=== PATIENT | female | born 1960 | race African-American/Black ===

== ENCOUNTER 2019-01-21 14:22 | Inpatient (IN) ==
[2019-01-21 18:00] LABS: ABG ALLEN TEST POS; ABG HCO3 29.6 mmol/L (22-26)
--- NOTE | 2019-01-21 19:22 | RAD ---
HISTORY: Congestive heart failure Study: Single view of the chest. Comparison: None. Findings: Cardiomegaly and pulmonary edema. No focal consolidations, pleural effusions or pneumothorax. Osseous structures demonstrate no acute abnormality. IMPRESSION: 1. Cardiomegaly and pulmonary edema. Reported By:
[2019-01-21 19:55] LABS: TROPONIN I 0.02 ng/mL (0-1.5)
[2019-01-21] MEDS: LASIX IVP SCH (20:21)
[2019-01-21 20:27] LABS: ALANINE AMINOTRANSFERASE 30 Units/L (12-78); ALBUMIN 3.4 g/dL (3.4-5.0); ALKALINE PHOSPHATASE 208 Units/L (46-116); ASPARTATE AMINO TRANSFERASE 24 Units/L (15-37); BLOOD UREA NITROGEN 72 mg/dL (7-18); CALCIUM 8.1 mg/dL (8.5-10.1); CARBON DIOXIDE 26.7 mmol/L (21-32); CHLORIDE 98 mmol/L (98-107); COR NA(FOR HYPERGLY) 134 mmol/L (136-145); CREATININE 4.67 mg/dL (0.55-1.02); SODIUM 133 mmol/L (136-145); TOTAL PROTEIN 7.3 g/dL (6.4-8.2); eGFR NON BLACK RACES 10 (>60)
[2019-01-21 20:42] LABS: CKMB % 1.3 % (<4)
[2019-01-21 20:58] LABS: BASOPHILS # (AUTO) 0.2 X10^3/uL (0.0-0.1); BASOPHILS % (AUTO) 3.8 % (0.2-1.0); EOSINOPHILS # (AUTO) 0.2 x10^3/uL (0.0-0.2); EOSINOPHILS % (AUTO) 3.3 % (0.9-2.9); HEMATOCRIT 29.7 % (36.0-47.0); HEMOGLOBIN 8.9 g/dL (12.0-16.0); LYMPHOCYTES # (AUTO) 0.8 X10^3/uL (1.3-2.9); LYMPHOCYTES % (AUTO) 13.1 % (21.0-51.0); MEAN CORPUSCULAR HEMOGLOBIN 21.7 pg (27.0-34.0); MEAN CORPUSCULAR HGB CONC 30.1 g/dL (33.0-35.0); MEAN CORPUSCULAR VOLUME 72.3 fL (80.0-100.0); MEAN PLATELET VOLUME 8.7 fL (7.4-11.0); MONOCYTES # (AUTO) 0.8 x10^3/uL (0.3-0.8); MONOCYTES % (AUTO) 12.8 % (0.0-13.0); PLATELET COUNT 191 X10^3/uL (150.0-450.0); RED BLOOD COUNT 4.11 X10^6/uL (3.5-5.4); RED CELL DISTRIBUTION WIDTH 22.2 % (11.6-16.5)
[2019-01-21 21:00] LABS: PLATELET MORPHOLOGY COMMENT NORMAL (NORMAL)
[2019-01-21 21:05] LABS: ANISOCYTOSIS 2+; HYPOCHROMASIA 2+; MICROCYTOSIS SLIGHT
[2019-01-22] MEDS: XOPENEX 1.25 MG/3 ML NEBULE NEB SCH ×4 (00:33→17:30)
[2019-01-22 01:26] LABS: CKMB % 1.4 % (<4); CREATINE KINASE MB 0.8 ng/mL (0-4.0); TROPONIN I 0.03 ng/mL (0-1.5)
[2019-01-22] MEDS: LASIX IVP SCH ×2 (04:05→20:36)
[2019-01-22 05:07] LABS: ABG BASE EXCESS 2.6 mmol/L (-2.0-2.0)
[2019-01-22 05:09] LABS: ABG HCO3 31.2 mmol/L (22-26)
--- NOTE | 2019-01-22 06:14 | RAD ---
History: CHF Exam: Portable chest Comparison: 01/21/2019 Technique: Portable AP chest Findings: The heart is moderately enlarged but unchanged. The pulmonary vessels are engorged ill-defined centrally more prominent . There are some hazy bibasilar opacities with questionable mild blunting of the costophrenic sulci which is more apparent. IMPRESSION: Stable cardiomegaly with increasing central pulmonary congestion. Hazy bibasilar opacities and questionable small bibasilar pleural effusions which is more apparent. Reported By:
[2019-01-22 06:37] LABS: BASOPHILS # (AUTO) 0.1 X10^3/uL (0.0-0.1); BASOPHILS % (AUTO) 1.3 % (0.2-1.0); EOSINOPHILS # (AUTO) 0.2 x10^3/uL (0.0-0.2); EOSINOPHILS % (AUTO) 3.5 % (0.9-2.9); HEMATOCRIT 27.3 % (36.0-47.0); HEMOGLOBIN 8.3 g/dL (12.0-16.0); LYMPHOCYTES # (AUTO) 1.1 X10^3/uL (1.3-2.9); LYMPHOCYTES % (AUTO) 17.7 % (21.0-51.0); MEAN CORPUSCULAR HEMOGLOBIN 21.9 pg (27.0-34.0); MEAN CORPUSCULAR HGB CONC 30.5 g/dL (33.0-35.0); MEAN CORPUSCULAR VOLUME 71.7 fL (80.0-100.0); MEAN PLATELET VOLUME 8.5 fL (7.4-11.0); MONOCYTES % (AUTO) 17.3 % (0.0-13.0); NEUTROPHILS # (AUTO) 3.6 x10^3/uL (2.2-4.8); NEUTROPHILS % (AUTO) 60.2 % (42.0-75.0); PLATELET COUNT 172 X10^3/uL (150.0-450.0); RED BLOOD COUNT 3.81 X10^6/uL (3.5-5.4); RED CELL DISTRIBUTION WIDTH 22.4 % (11.6-16.5)
[2019-01-22 06:46] LABS: HYPOCHROMASIA 1+; PLATELET MORPHOLOGY COMMENT NORMAL (NORMAL)
[2019-01-22 06:47] LABS: ANISOCYTOSIS 1+; TARGET CELLS SLIGHT
[2019-01-22 06:58] LABS: ALANINE AMINOTRANSFERASE 25 Units/L (12-78); ALKALINE PHOSPHATASE 178 Units/L (46-116); ASPARTATE AMINO TRANSFERASE 35 Units/L (15-37); BLOOD UREA NITROGEN 74 mg/dL (7-18); CARBON DIOXIDE 25.2 mmol/L (21-32); CHLORIDE 98 mmol/L (98-107); COR CA(FOR HYPOALB) 8.8 mg/dL (8.5-10.1); CREATININE 4.54 mg/dL (0.55-1.02); SODIUM 135 mmol/L (136-145); TOTAL PROTEIN 6.5 g/dL (6.4-8.2); eGFR NON BLACK RACES 11 (>60)
[2019-01-22 06:59] LABS: CKMB % 0.9 % (<4); CREATINE KINASE 66 Units/L (26-192); CREATINE KINASE MB 0.6 ng/mL (0-4.0); TROPONIN I 0.01 ng/mL (0-1.5)
[2019-01-22] MEDS ORDERED: PATIENT'S HOME MEDICATION (Albuterol Sulfate [Proventil Hfa] 2 PUFF) IN PRN (08:06)
[2019-01-22] MEDS ORDERED: NEURONTIN CAP 400 MG PO SCH (09:00)
[2019-01-22] MEDS: ALDACTONE TAB 25 MG PO SCH (10:48)
[2019-01-22] MEDS: ASPIRIN EC 81 MG PO SCH (10:48)
[2019-01-22] MEDS: KEPPRA TAB 500 MG PO SCH ×2 (10:49→20:36)
[2019-01-22] MEDS: ZAROXOYLN PO SCH (10:50)
[2019-01-22] MEDS: PriLOSEC PO SCH (10:50)
[2019-01-22] MEDS: SNACK - Diabetic Appropriate PO SCH (20:30)
[2019-01-22] MEDS: LIPITOR TAB 40 MG PO SCH (20:36)
[2019-01-22] MEDS ORDERED: LANTUS SC SCH (21:00)
[2019-01-23] MEDS: XOPENEX 1.25 MG/3 ML NEBULE NEB SCH ×4 (00:03→17:26)
[2019-01-23 05:11] LABS: ABG BASE EXCESS 4.2 mmol/L (-2.0-2.0)
[2019-01-23 05:12] LABS: ABG HCO3 32.7 mmol/L (22-26)
[2019-01-23 06:04] LABS: BASOPHILS # (AUTO) 0.1 X10^3/uL (0.0-0.1); EOSINOPHILS # (AUTO) 0.2 x10^3/uL (0.0-0.2); EOSINOPHILS % (AUTO) 3.7 % (0.9-2.9); HEMATOCRIT 27.9 % (36.0-47.0); HEMOGLOBIN 8.3 g/dL (12.0-16.0); LYMPHOCYTES # (AUTO) 0.8 X10^3/uL (1.3-2.9); LYMPHOCYTES % (AUTO) 16.4 % (21.0-51.0); MEAN CORPUSCULAR HEMOGLOBIN 21.8 pg (27.0-34.0); MEAN CORPUSCULAR HGB CONC 29.9 g/dL (33.0-35.0); MEAN PLATELET VOLUME 9.4 fL (7.4-11.0); MONOCYTES # (AUTO) 0.8 x10^3/uL (0.3-0.8); MONOCYTES % (AUTO) 15.2 % (0.0-13.0); NEUTROPHILS # (AUTO) 3.2 x10^3/uL (2.2-4.8); NEUTROPHILS % (AUTO) 63.7 % (42.0-75.0); PLATELET COUNT 183 X10^3/uL (150.0-450.0); RED BLOOD COUNT 3.82 X10^6/uL (3.5-5.4)
--- NOTE | 2019-01-23 06:18 | RAD ---
HISTORY: Shortness of breath Study: Single view chest Comparison: 01/22/2019 Findings: Single view demonstrates low lung volumes. No infiltrate, effusion or pneumothorax identified. There is cardiomegaly with chronic central vascular congestion without alveolar edema. The soft tissues are unremarkable. IMPRESSION: 1. Stable cardiomegaly and vascular congestion. Reported By:
[2019-01-23 06:33] LABS: ALANINE AMINOTRANSFERASE 31 Units/L (12-78); ALBUMIN 2.9 g/dL (3.4-5.0); ALKALINE PHOSPHATASE 165 Units/L (46-116); ASPARTATE AMINO TRANSFERASE 27 Units/L (15-37); BLOOD UREA NITROGEN 71 mg/dL (7-18); CALCIUM 8.2 mg/dL (8.5-10.1); CHLORIDE 100 mmol/L (98-107); COR CA(FOR HYPOALB) 9.1 mg/dL (8.5-10.1); CREATININE 3.81 mg/dL (0.55-1.02); SODIUM 137 mmol/L (136-145); TOTAL PROTEIN 6.4 g/dL (6.4-8.2); eGFR NON BLACK RACES 13 (>60)
[2019-01-23 06:58] LABS: ANISOCYTOSIS 1+; HYPOCHROMASIA 2+; PLATELET MORPHOLOGY COMMENT NORMAL (NORMAL)
[2019-01-23] MEDS: KEPPRA TAB 500 MG PO SCH ×2 (09:35→20:38)
[2019-01-23] MEDS: PriLOSEC PO SCH (09:35)
[2019-01-23] MEDS: LASIX IVP SCH ×3 (09:35→22:00)
[2019-01-23] MEDS: ASPIRIN EC 81 MG PO SCH (09:35)
[2019-01-23] MEDS: ALDACTONE TAB 25 MG PO SCH (09:35)
[2019-01-23] MEDS: ZAROXOYLN PO SCH (09:38)
[2019-01-23] MEDS ORDERED: PERCOCET TAB 5/325 MG ONE (11:18)
[2019-01-23] MEDS ORDERED: NS 1000 ML 1,000 ML ONE (13:42)
[2019-01-23] MEDS ORDERED: LASIX IVP ONE (13:43)
[2019-01-23] MEDS: NS 1000 ML 1,000 ML IV SCH (14:06)
[2019-01-23] MEDS: LIPITOR TAB 40 MG PO SCH (20:38)
[2019-01-23] MEDS: SNACK - Diabetic Appropriate PO SCH (20:38)
[2019-01-24] MEDS: XOPENEX 1.25 MG/3 ML NEBULE NEB SCH ×4 (00:51→17:20)
[2019-01-24] MEDS: LASIX IVP SCH ×3 (05:51→21:57)
[2019-01-24 05:53] LABS: BASOPHILS % (AUTO) 0.6 % (0.2-1.0); EOSINOPHILS # (AUTO) 0.2 x10^3/uL (0.0-0.2); EOSINOPHILS % (AUTO) 3.1 % (0.9-2.9); HEMATOCRIT 29.1 % (36.0-47.0); HEMOGLOBIN 8.8 g/dL (12.0-16.0); LYMPHOCYTES # (AUTO) 0.8 X10^3/uL (1.3-2.9); LYMPHOCYTES % (AUTO) 16.3 % (21.0-51.0); MEAN CORPUSCULAR HEMOGLOBIN 21.8 pg (27.0-34.0); MEAN CORPUSCULAR HGB CONC 30.5 g/dL (33.0-35.0); MEAN CORPUSCULAR VOLUME 71.7 fL (80.0-100.0); MONOCYTES # (AUTO) 0.8 x10^3/uL (0.3-0.8); MONOCYTES % (AUTO) 16.4 % (0.0-13.0); NEUTROPHILS # (AUTO) 3.1 x10^3/uL (2.2-4.8); NEUTROPHILS % (AUTO) 63.6 % (42.0-75.0); PLATELET COUNT 201 X10^3/uL (150.0-450.0); RED BLOOD COUNT 4.05 X10^6/uL (3.5-5.4); RED CELL DISTRIBUTION WIDTH 21.6 % (11.6-16.5); WHITE BLOOD COUNT 4.9 X10^3/uL (3.6-10.0)
[2019-01-24 06:09] VITALS: BMI 70.7
[2019-01-24 06:14] LABS: ALBUMIN 3.2 g/dL (3.4-5.0); CALCIUM 8.3 mg/dL (8.5-10.1); CARBON DIOXIDE 33.2 mmol/L (21-32); COR CA(FOR HYPOALB) 8.9 mg/dL (8.5-10.1); CREATININE 2.9 mg/dL (0.55-1.02); TOTAL PROTEIN 7.1 g/dL (6.4-8.2)
--- NOTE | 2019-01-24 07:02 | RAD ---
HISTORY: Shortness of breath Study: Chest AP portable Comparison: 01/23/2019 Findings: The heart remains enlarged. No congestive heart failure is noted. No acute alveolar infiltrates or pleural effusions are identified. The bony thorax is unremarkable. IMPRESSION: Continued marked cardiomegaly but without definite congestive heart failure on today's examination No infiltrates Reported By:
[2019-01-24 07:13] LABS: ANISOCYTOSIS 2+; HYPOCHROMASIA 2+; PLATELET MORPHOLOGY COMMENT NORMAL (NORMAL)
[2019-01-24] MEDS ORDERED: PHARMACY CONSULT - DOSE _____ XX SCH (09:00)
[2019-01-24] MEDS: ASPIRIN EC 81 MG PO SCH (09:18)
[2019-01-24] MEDS: ZAROXOYLN PO SCH (09:19)
[2019-01-24] MEDS: PriLOSEC PO SCH (09:19)
[2019-01-24] MEDS: KEPPRA TAB 500 MG PO SCH ×2 (09:19→21:14)
[2019-01-24] MEDS: ALDACTONE TAB 25 MG PO SCH (09:19)
[2019-01-24 13:07] LABS: ABG BASE EXCESS 11.2 mmol/L (-2.0-2.0)
[2019-01-24 13:09] LABS: ABG ALLEN TEST POS; ABG HCO3 38.4 mmol/L (22-26)
[2019-01-24] MEDS: LOVENOX INJ 30 MG SYR SC SCH (14:20)
[2019-01-24 19:32] LABS: BILIRUBIN,URINE NEGATIVE (NEGATIVE); BLOOD/HEMOGLOBIN,URINE 4+ (NEGATIVE); GLUCOSE, URINE NEGATIVE (NEGATIVE); KETONES,URINE NEGATIVE (NEGATIVE); LEUKOCYTE ESTERASE ,URINE NEGATIVE (NEGATIVE); NITRITES,URINE NEGATIVE (NEGATIVE); PROTEIN,URINE 1+ (NEGATIVE); UROBILINOGEN,URINE NORMAL (NORMAL)
[2019-01-24 19:33] LABS: APPEARANCE,URINE CLEAR (CLEAR); COLOR,URINE STRAW (YELLOW)
[2019-01-24 19:39] LABS: BACTERIA,URINE NEGATIVE /HPF (NEGATIVE); SQUAMOUS EPITHELIAL CELL,UR NEGATIVE /HPF (NEGATIVE)
[2019-01-24] MEDS: SNACK - Diabetic Appropriate PO SCH (20:30)
[2019-01-24] MEDS: HumuLIN R SUBCUT PRN (20:40)
[2019-01-24] MEDS: LIPITOR TAB 40 MG PO SCH (21:15)
[2019-01-24] MEDS: NEURONTIN CAP 100 MG PO SCH (21:57)
--- NOTE | 2019-01-24 23:04 | PCM.PROG ---
Progress Note - Progress Note for Day of Date of Exam: 01/22/19 - Subjective Subjective: WAS ADMITTED YESTERDAY FOR ACUTE CONGESTIVE HEART FAILURE. TODAY, SHE IS LYING IN BED WITH EYES CLOSED ON MORNING ROUNDS. SHE OPENS EYES TO VERBAL STIMULI, BUT DOES NOT VERBALLY RESPOND. SHE HAS A HISTORY OF APHASIA DUE TO A PAST CVA. SHE APPEARS TO BE IN SOME RESPIRATORY DISTRESS. ON EXAMINATION, HEART IS REGULAR IN RATE AND RHYTHM. BILATERAL LUNGS ARE NOTED WITH SCATTERED WHEEZING. ABDOMEN IS ROUND, SOFT, AND NON-TENDER WITH NORMAL BOWEL SOUNDS NOTED IN ALL QUADRANTS. THERE IS 1+ PITTING EDEMA NOTED TO LOWER EXTREMITIES. HER VITALS THIS MORNING ARE 98.8-61-15-92%-121/59. LABS WERE OBTAINED. ABNORMAL LAB VALUES INCLUDE THE FOLLOWING: HGB 8.2, HCT 27.3, SODIUM 135, POTASSIUM 5.8, BUN 74, CREATININE 4.54, GLUCOSE 8.0, ALK PHOS 178, ALBUMIN 3.0. TODAYS ABG REVEALED: PH 7.270, PC02 68.0, P02 85.0, HC03 31.2, 02 SATURATION 95.0, BASE EXCESS 2.6. A CHEST XRAY WAS OBTAINED AND REVEALED: Stable cardiomegaly with increasing central pulmonary congestion. Hazy bibasilar opacities and questionable small bibasilar pleural effusions which is more apparent. SHE IS CURRENTLY RECEIVING LASIX 40MG IV BID AND HER HOME MEDICATIONS WERE RESUMED. WE WILL DISCONTINUE THE [place] DUE TO HER INCREASED POTASSIUM. OTHERWISE, WE WILL FOLLOW UP WITH AM LABS AND CHEST XRAY AND CONTINUE TO MONITOR. - Past Medical Family Social History Past Med/Fam/Surg Hx: No changes since H&P Allergies: Allergies No Known Drug Allergies Allergy (Verified 01/21/19 17:08) - Review of Systems ROS: No change since H&P - Vital Signs and I&O's Vital Signs: Temperature 99.1 F Pulse Rate [Right Radial] 54 Pulse Rate 77 Respiratory Rate 17 Blood Pressure [Left Arm] 107/63 Blood Pressure 154/68 O2 Sat by Pulse Oximetry 97 Intake and Output: Intake & Output 01/22/19 01/23/19 01/24/19 01/25/19 11:59 11:59 11:59 11:59 Intake Total 0 / 0 960 / 960 1913 / 1913 1283 / 1283 Output Total 1000 / 1000 3900 / 3900 5250 / 5250 5500 / 5500 Balance -1000 / -1000 -2940 / -2940 -3337 / -3337 -4217 / -4217 - Physical Exam Oriented: Unable to test Eyes: Normal Ear: Normal Nose: Normal Respiratory: Generalized, Wheezes Cardiovascular: Edema (LOWER EXTREMITY 1+ PITTING EDEMA ) : Normal Auscultation: Bowel Sounds: Normal Palpation: Normal Tenderness: Normal Skin: Normal Musculoskeletal: Normal Psychiatric: Normal Mood Description: Calm Affect: Normal Speech Pattern: Inappropriate, Delayed - Laboratory and Diagnostics Result Diagrams: 01/24/19 04:04 01/24/19 04:04 Labs: Laboratory WBC 4.9 X10^3/uL (3.6-10.0) 01/24/19 04:04 RBC 4.05 X10^6/uL (3.5-5.4) 01/24/19 04:04 Hgb 8.8 g/dL (12.0-16.0) L 01/24/19 04:04 Hct 29.1 % (36.0-47.0) L 01/24/19 04:04 MCV 71.7 fL (80.0-100.0) L 01/24/19 04:04 MCH 21.8 pg (27.0-34.0) L 01/24/19 04:04 MCHC 30.5 g/dL (33.0-35.0) L 01/24/19 04:04 RDW 21.6 % (11.6-16.5) H 01/24/19 04:04 Plt Count 201 X10^3/uL (150.0-450.0) 01/24/19 04:04 Plt Count Comment Adequate (ADEQUATE) 01/24/19 04:04 MPV 9.0 fL (7.4-11.0) 01/24/19 04:04 Neut % (Auto) 63.6 % (42.0-75.0) 01/24/19 04:04 Lymph % (Auto) 16.3 % (21.0-51.0) L 01/24/19 04:04 [place] % (Auto) 16.4 % (0.0-13.0) H 01/24/19 04:04 Eos % (Auto) 3.1 % (0.9-2.9) H 01/24/19 04:04 Baso % (Auto) 0.6 % (0.2-1.0) 01/24/19 04:04 Neut # (Auto) 3.1 x10^3/uL (2.2-4.8) 01/24/19 04:04 Lymph # (Auto) 0.8 X10^3/uL (1.3-2.9) L 01/24/19 04:04 [place] # (Auto) 0.8 x10^3/uL (0.3-0.8) 01/24/19 04:04 Eos # (Auto) 0.2 x10^3/uL (0.0-0.2) 01/24/19 04:04 Baso # (Auto) 0.0 X10^3/uL (0.0-0.1) 01/24/19 04:04 Absolute Nucleated RBC 0.1 /100WBC 01/24/19 04:04 Plt Morphology Comment Normal (NORMAL) 01/24/19 04:04 RBC Morphology Abnormal (NORMAL) A 01/24/19 04:04 Hypochromasia 2+ A 01/24/19 04:04 Anisocytosis 2+ A 01/24/19 04:04 Microcytosis Slight A 01/21/19 20:46 Target Cells Slight A 01/22/19 06:20 Sample Site Lr 01/24/19 12:57 ABG pH 7.400 (7.35-7.45) 01/24/19 12:57 ABG pCO2 62.0 mmHg (35.0-45.0) H* 01/24/19 12:57 ABG pO2 43.0 mmHg (80.0-100.0) L* 01/24/19 12:57 ABG HCO3 38.4 mmol/L (22-26) H* 01/24/19 12:57 ABG O2 Saturation 79.0 % (90-100) L* 01/24/19 12:57 ABG Base Excess 11.2 mmol/L (-2.0-2.0) H 01/24/19 12:57 Semaj Test Pos 01/24/19 12:57 A-a Gradient 108.0 mmHg 01/24/19 12:57 FiO2 32.0 01/24/19 12:57 Blood Gas Comments Celso well cb 01/24/19 12:57 Sodium 139 mmol/L (136-145) 01/24/19 04:04 Corrected Sodium 140 mmol/L (136-145) 01/24/19 04:04 Potassium 4.3 mmol/L (3.5-5.1) 01/24/19 04:04 Chloride 100 mmol/L (98-107) 01/24/19 04:04 Carbon Dioxide 33.2 mmol/L (21-32) H 01/24/19 04:04 BUN 66 mg/dL (7-18) H 01/24/19 04:04 Creatinine 2.90 mg/dL (0.55-1.02) H 01/24/19 04:04 Est GFR (MDRD) Af Amer 21 (>60) L 01/24/19 04:04 Est GFR (MDRD) Non-Af 18 (>60) L 01/24/19 04:04 Glucose 160 mg/dL (65-99) H 01/24/19 04:04 POC Glucose (mg/dL) 232 mg/dL (65-99) H 01/24/19 20:35 Calcium 8.3 mg/dL (8.5-10.1) L 01/24/19 04:04 Corrected Calcium 8.9 mg/dL (8.5-10.1) 01/24/19 04:04 Total Bilirubin 1.00 mg/dL (0.2-1.0) 01/24/19 04:04 AST 23 Units/L (15-37) 01/24/19 04:04 ALT 29 Units/L (12-78) 01/24/19 04:04 Alkaline Phosphatase 175 Units/L (46-116) H 01/24/19 04:04 Creatine Kinase 66 Units/L (26-192) 01/22/19 06:20 CK-MB (CK-2) 0.6 ng/mL (0-4.0) 01/22/19 06:20 CK/CKMB % Calc 0.9 % (<4) 01/22/19 06:20 Troponin I 0.01 ng/mL (0-1.5) 01/22/19 06:20 Total Protein 7.1 g/dL (6.4-8.2) 01/24/19 04:04 Albumin 3.2 g/dL (3.4-5.0) L 01/24/19 04:04 Globulin 3.9 g/dL (2.5-4.5) 01/24/19 04:04 Albumin/Globulin Ratio 0.8 Ratio (1.1-2.1) L 01/24/19 04:04 Specimen Type Catherized urine 01/24/19 19:19 Urine Color Straw (YELLOW) 01/24/19 19: Urine Appearance Clear (CLEAR) 01/24/19 19: Urine pH 7.0 (5.0 - 8.0) 01/24/19 19: Ur Specific [place] 1.005 (1.000-1.030) 01/24/19 19: Urine Protein 1+ (NEGATIVE) 01/24/19 19: Urine Glucose (UA) Negative (NEGATIVE) 01/24/19 19: Urine Ketones Negative (NEGATIVE) 01/24/19 19: Urine Occult Blood 4+ (NEGATIVE) 01/24/19 19: Urine Nitrite Negative (NEGATIVE) 01/24/19 19: Urine Bilirubin Negative (NEGATIVE) 01/24/19 19: Urine Urobilinogen Normal (NORMAL) 01/24/19 19:19 Ur Leukocyte Esterase Negative (NEGATIVE) 01/24/19 19: Urine RBC 10-20 /HPF (NONE SEEN) 01/24/19 19:19 Urine WBC None seen /HPF (NONE SEEN) 01/24/19 19:19 Ur Squamous Epith Cells Negative /HPF (NEGATIVE) 01/24/19 19: Urine Bacteria Negative /HPF (NEGATIVE) 01/24/19 19: Ur Culture Indicated? No/not indicated 01/24/19 19:19 - Plan (1) Acute exacerbation of CHF (congestive heart failure) Status: Acute Qualifiers: Heart failure type: unspecified Qualified Code(s): I50.9 - Heart failure, unspecified Plan: LASIX 40 MG IV BID, BIPAP, SUPPLEMENTAL OXYGEN, CONTINUE TO MONITOR
[2019-01-25] MEDS: XOPENEX 1.25 MG/3 ML NEBULE NEB SCH ×5 (01:00→18:36)
[2019-01-25 05:24] LABS: BASOPHILS % (AUTO) 0.7 % (0.2-1.0); EOSINOPHILS # (AUTO) 0.2 x10^3/uL (0.0-0.2); EOSINOPHILS % (AUTO) 3.7 % (0.9-2.9); HEMATOCRIT 26.1 % (36.0-47.0); LYMPHOCYTES # (AUTO) 0.9 X10^3/uL (1.3-2.9); LYMPHOCYTES % (AUTO) 19.7 % (21.0-51.0); MEAN CORPUSCULAR HGB CONC 30.8 g/dL (33.0-35.0); MEAN CORPUSCULAR VOLUME 71.3 fL (80.0-100.0); MEAN PLATELET VOLUME 8.8 fL (7.4-11.0); MONOCYTES # (AUTO) 0.7 x10^3/uL (0.3-0.8); MONOCYTES % (AUTO) 15.2 % (0.0-13.0); NEUTROPHILS # (AUTO) 2.8 x10^3/uL (2.2-4.8); NEUTROPHILS % (AUTO) 60.7 % (42.0-75.0); PLATELET COUNT 187 X10^3/uL (150.0-450.0); RED BLOOD COUNT 3.65 X10^6/uL (3.5-5.4); RED CELL DISTRIBUTION WIDTH 22.5 % (11.6-16.5); WHITE BLOOD COUNT 4.7 X10^3/uL (3.6-10.0)
[2019-01-25 05:39] LABS: CALCIUM 8.5 mg/dL (8.5-10.1); CARBON DIOXIDE 36.5 mmol/L (21-32); COR CA(FOR HYPOALB) 9.3 mg/dL (8.5-10.1); CREATININE 2.25 mg/dL (0.55-1.02); TOTAL PROTEIN 6.5 g/dL (6.4-8.2)
[2019-01-25] MEDS: HumuLIN R SUBCUT PRN ×4 (05:45→21:07)
[2019-01-25] MEDS: NEURONTIN CAP 100 MG PO SCH ×3 (06:12→22:00)
[2019-01-25] MEDS: LASIX IVP SCH ×3 (06:12→22:00)
[2019-01-25 06:43] LABS: HYPOCHROMASIA 1+; PLATELET MORPHOLOGY COMMENT NORMAL (NORMAL)
[2019-01-25 06:44] LABS: ANISOCYTOSIS 2+
[2019-01-25] MEDS: ZAROXOYLN PO SCH (09:35)
[2019-01-25] MEDS: KEPPRA TAB 500 MG PO SCH ×2 (09:35→20:50)
[2019-01-25] MEDS: LOVENOX INJ 30 MG SYR SC SCH (09:36)
[2019-01-25] MEDS: PriLOSEC PO SCH (09:36)
[2019-01-25] MEDS: ASPIRIN EC 81 MG PO SCH (09:36)
[2019-01-25] MEDS: ALDACTONE TAB 25 MG PO SCH (09:36)
--- NOTE | 2019-01-25 11:20 | PCM.PROG ---
Progress Note - Progress Note for Day of Date of Exam: 01/23/19 - Subjective Subjective: WAS ADMITTED YESTERDAY FOR ACUTE CONGESTIVE HEART FAILURE. TODAY, SHE IS LYING IN BED WITH EYES CLOSED ON MORNING ROUNDS. SHE OPENS EYES TO VERBAL STIMULI, BUT DOES NOT VERBALLY RESPOND. SHE HAS A HISTORY OF APHASIA DUE TO A PAST CVA. SHE CONTINUES TO BE IN SOME RESPIRATORY DISTRESS THIS MORNING. ON EXAMINATION, HEART IS REGULAR IN RATE AND RHYTHM. BILATERAL LUNGS ARE NOTED WITH SCATTERED WHEEZING. ABDOMEN IS ROUND, SOFT, AND NON-TENDER WITH NORMAL BOWEL SOUNDS NOTED IN ALL QUADRANTS. THERE IS 1+ PITTING EDEMA NOTED TO LOWER EXTREMITIES. HER VITALS THIS MORNING ARE 98.4-60-14-99%-111/53. LABS WERE OBTAINED. ABNORMAL LAB VALUES INCLUDE THE FOLLOWING: HGB 8.3, HCT 27.9, BUN 71, CREATININE 3.81, CALCIUM 8.2, ALK PHOSPHATASE 165, ALBUMIN 2.9. TODAYS ABG REVEALED: PH 7.290, PC02 68.0, P02 113, HC03 32.7, 02 SATURATION 98.0, BASE EXCESS 4.2. A CHEST XRAY WAS OBTAINED AND REVEALED: Stable cardiomegaly and vascular congestion. SHE IS CURRENTLY RECEIVING LASIX 40MG IV BID. WE WILL CONTINUE WITH CURRENT PLAN OF CARE TODAY. OTHERWISE, WE WILL FOLLOW UP WITH AM LABS AND CHEST XRAY AND CONTINUE TO MONITOR. - Past Medical Family Social History Past Med/Fam/Surg Hx: No changes since H&P Allergies: Allergies No Known Drug Allergies Allergy (Verified 01/21/19 17:08) - Review of Systems ROS: No change since H&P - Vital Signs and I&O's Vital Signs: Temperature 98.0 F Pulse Rate [Right Radial] 54 Pulse Rate 71 Respiratory Rate 20 Blood Pressure [Left Arm] 107/63 Blood Pressure 136/61 O2 Sat by Pulse Oximetry 100 Intake and Output: Intake & Output 01/22/19 01/23/19 01/24/19 01/25/19 11:59 11:59 11:59 11:59 Intake Total 0 / 0 960 / 960 1912 / 1912 2525 / 2525 Output Total 1000 / 1000 3900 / 3900 5250 / 5250 73932 / 35442 Balance -1000 / -1000 -2940 / -2940 -3337 / -3337 -7875 / -7875 - Physical Exam Oriented: Unable to test Eyes: Normal Ear: Normal Nose: Normal Respiratory: Generalized, Wheezes Cardiovascular: Edema (LOWER EXTREMITY 1+ PITTING EDEMA ) : Normal Auscultation: Bowel Sounds: Normal Tenderness: Normal Skin: Normal Musculoskeletal: Normal Psychiatric: Normal Mood Description: Calm Affect: Normal Speech Pattern: Clear, Appropriate - Laboratory and Diagnostics Result Diagrams: 01/25/19 04:42 01/25/19 04:42 Labs: Laboratory WBC 4.7 X10^3/uL (3.6-10.0) 01/25/19 04:42 RBC 3.65 X10^6/uL (3.5-5.4) 01/25/19 04:42 Hgb 8.0 g/dL (12.0-16.0) L 01/25/19 04:42 Hct 26.1 % (36.0-47.0) L 01/25/19 04:42 MCV 71.3 fL (80.0-100.0) L 01/25/19 04:42 MCH 22.0 pg (27.0-34.0) L 01/25/19 04:42 MCHC 30.8 g/dL (33.0-35.0) L 01/25/19 04:42 RDW 22.5 % (11.6-16.5) H 01/25/19 04:42 Plt Count 187 X10^3/uL (150.0-450.0) 01/25/19 04:42 Plt Count Comment Adequate (ADEQUATE) 01/25/19 04:42 MPV 8.8 fL (7.4-11.0) 01/25/19 04:42 Neut % (Auto) 60.7 % (42.0-75.0) 01/25/19 04:42 Lymph % (Auto) 19.7 % (21.0-51.0) L 01/25/19 04:42 [place] % (Auto) 15.2 % (0.0-13.0) H 01/25/19 04:42 Eos % (Auto) 3.7 % (0.9-2.9) H 01/25/19 04:42 Baso % (Auto) 0.7 % (0.2-1.0) 01/25/19 04:42 Neut # (Auto) 2.8 x10^3/uL (2.2-4.8) 01/25/19 04:42 Lymph # (Auto) 0.9 X10^3/uL (1.3-2.9) L 01/25/19 04:42 [place] # (Auto) 0.7 x10^3/uL (0.3-0.8) 01/25/19 04:42 Eos # (Auto) 0.2 x10^3/uL (0.0-0.2) 01/25/19 04:42 Baso # (Auto) 0.0 X10^3/uL (0.0-0.1) 01/25/19 04:42 Absolute Nucleated RBC 0.1 /100WBC 01/25/19 04:42 Plt Morphology Comment Normal (NORMAL) 01/25/19 04:42 RBC Morphology Abnormal (NORMAL) A 01/25/19 04:42 Hypochromasia 1+ A 01/25/19 04:42 Anisocytosis 2+ A 01/25/19 04:42 Microcytosis Slight A 01/21/19 20:46 Target Cells Slight A 01/22/19 06:20 Sample Site Lr 01/24/19 12:57 ABG pH 7.400 (7.35-7.45) 01/24/19 12:57 ABG pCO2 62.0 mmHg (35.0-45.0) H* 01/24/19 12:57 ABG pO2 43.0 mmHg (80.0-100.0) L* 01/24/19 12:57 ABG HCO3 38.4 mmol/L (22-26) H* 01/24/19 12:57 ABG O2 Saturation 79.0 % (90-100) L* 01/24/19 12:57 ABG Base Excess 11.2 mmol/L (-2.0-2.0) H 01/24/19 12:57 Semaj Test Pos 01/24/19 12:57 A-a Gradient 108.0 mmHg 01/24/19 12:57 FiO2 32.0 01/24/19 12:57 Blood Gas Comments Celso well cb 01/24/19 12:57 Sodium 140 mmol/L (136-145) 01/25/19 04:42 Corrected Sodium 142 mmol/L (136-145) 01/25/19 04:42 Potassium 4.0 mmol/L (3.5-5.1) 01/25/19 04:42 Chloride 101 mmol/L (98-107) 01/25/19 04:42 Carbon Dioxide 36.5 mmol/L (21-32) H 01/25/19 04:42 BUN 54 mg/dL (7-18) H 01/25/19 04:42 Creatinine 2.25 mg/dL (0.55-1.02) H 01/25/19 04:42 Est GFR (MDRD) Af Amer 29 (>60) L 01/25/19 04:42 Est GFR (MDRD) Non-Af 24 (>60) L 01/25/19 04:42 Glucose 165 mg/dL (65-99) H 01/25/19 04:42 POC Glucose (mg/dL) 174 mg/dL (65-99) H 01/25/19 11:16 Calcium 8.5 mg/dL (8.5-10.1) 01/25/19 04:42 Corrected Calcium 9.3 mg/dL (8.5-10.1) 01/25/19 04:42 Total Bilirubin 1.10 mg/dL (0.2-1.0) H 01/25/19 04:42 AST 17 Units/L (15-37) 01/25/19 04:42 ALT 21 Units/L (12-78) 01/25/19 04:42 Alkaline Phosphatase 157 Units/L (46-116) H 01/25/19 04:42 Creatine Kinase 66 Units/L (26-192) 01/22/19 06:20 CK-MB (CK-2) 0.6 ng/mL (0-4.0) 01/22/19 06:20 CK/CKMB % Calc 0.9 % (<4) 01/22/19 06:20 Troponin I 0.01 ng/mL (0-1.5) 01/22/19 06:20 Total Protein 6.5 g/dL (6.4-8.2) 01/25/19 04:42 Albumin 3.0 g/dL (3.4-5.0) L 01/25/19 04:42 Globulin 3.5 g/dL (2.5-4.5) 01/25/19 04:42 Albumin/Globulin Ratio 0.9 Ratio (1.1-2.1) L 01/25/19 04:42 Specimen Type Catherized urine 01/24/19 19: Urine Color Straw (YELLOW) 01/24/19 19: Urine Appearance Clear (CLEAR) 01/24/19 19: Urine pH 7.0 (5.0 - 8.0) 01/24/19 19: Ur Specific [place] 1.005 (1.000-1.030) 01/24/19 19: Urine Protein 1+ (NEGATIVE) 01/24/19 19: Urine Glucose (UA) Negative (NEGATIVE) 01/24/19 19: Urine Ketones Negative (NEGATIVE) 01/24/19: Urine Occult Blood 4+ (NEGATIVE) 01/24/19 19: Urine Nitrite Negative (NEGATIVE) 01/24/19 19: Urine Bilirubin Negative (NEGATIVE) 01/24/19 19: Urine Urobilinogen Normal (NORMAL) 01/24/19 19: Ur Leukocyte Esterase Negative (NEGATIVE) 01/24/19 19: Urine RBC 10-20 /HPF (NONE SEEN) 01/24/19 19: Urine WBC None seen /HPF (NONE SEEN) 01/24/19 19: Ur Squamous Epith Cells Negative /HPF (NEGATIVE) 01/24/19 19: Urine Bacteria Negative /HPF (NEGATIVE) 01/24/19 19: Ur Culture Indicated? No/not indicated 01/24/19 19: - Plan (1) Acute exacerbation of CHF (congestive heart failure) Status: Acute Qualifiers: Heart failure type: unspecified Qualified Code(s): I50.9 - Heart failure, unspecified Plan: LASIX 40 MG IV BID, BIPAP, SUPPLEMENTAL OXYGEN, CONTINUE TO MONITOR
[2019-01-25 12:40] LABS: ABG BASE EXCESS 14.2 mmol/L (-2.0-2.0)
[2019-01-25 12:41] LABS: ABG HCO3 41.5 mmol/L (22-26)
[2019-01-25 12:42] LABS: ABG ALLEN TEST POS
[2019-01-25] MEDS: NS 1000 ML 1,000 ML IV SCH (15:00)
[2019-01-25] MEDS: SNACK - Diabetic Appropriate PO SCH (20:35)
[2019-01-25] MEDS: LIPITOR TAB 40 MG PO SCH (21:07)
[2019-01-26] MEDS: XOPENEX 1.25 MG/3 ML NEBULE NEB SCH ×4 (00:54→16:33)
[2019-01-26 05:23] LABS: BASOPHILS # (AUTO) 0.1 X10^3/uL (0.0-0.1); EOSINOPHILS # (AUTO) 0.2 x10^3/uL (0.0-0.2); EOSINOPHILS % (AUTO) 2.9 % (0.9-2.9); HEMATOCRIT 28.3 % (36.0-47.0); HEMOGLOBIN 8.7 g/dL (12.0-16.0); LYMPHOCYTES # (AUTO) 0.8 X10^3/uL (1.3-2.9); MEAN CORPUSCULAR HEMOGLOBIN 21.8 pg (27.0-34.0); MEAN CORPUSCULAR HGB CONC 30.9 g/dL (33.0-35.0); MEAN CORPUSCULAR VOLUME 70.6 fL (80.0-100.0); MEAN PLATELET VOLUME 8.7 fL (7.4-11.0); MONOCYTES # (AUTO) 0.7 x10^3/uL (0.3-0.8); MONOCYTES % (AUTO) 12.3 % (0.0-13.0); NEUTROPHILS # (AUTO) 4.2 x10^3/uL (2.2-4.8); NEUTROPHILS % (AUTO) 70.8 % (42.0-75.0); PLATELET COUNT 209 X10^3/uL (150.0-450.0); RED BLOOD COUNT 4.01 X10^6/uL (3.5-5.4); RED CELL DISTRIBUTION WIDTH 22.3 % (11.6-16.5); WHITE BLOOD COUNT 5.9 X10^3/uL (3.6-10.0)
[2019-01-26 05:36] LABS: ALANINE AMINOTRANSFERASE 21 Units/L (12-78); ALBUMIN 3.4 g/dL (3.4-5.0); ALKALINE PHOSPHATASE 173 Units/L (46-116); ASPARTATE AMINO TRANSFERASE 16 Units/L (15-37); BLOOD UREA NITROGEN 46 mg/dL (7-18); CALCIUM 9.2 mg/dL (8.5-10.1); CHLORIDE 100 mmol/L (98-107); COR NA(FOR HYPERGLY) 141 mmol/L (136-145); CREATININE 1.89 mg/dL (0.55-1.02); SODIUM 140 mmol/L (136-145); TOTAL PROTEIN 7.1 g/dL (6.4-8.2); eGFR NON BLACK RACES 29 (>60)
[2019-01-26] MEDS: LASIX IVP SCH ×3 (06:05→21:02)
[2019-01-26] MEDS: NEURONTIN CAP 100 MG PO SCH ×3 (06:05→21:02)
[2019-01-26 06:32] LABS: ABG BASE EXCESS 16.2 mmol/L (-2.0-2.0)
[2019-01-26 06:34] LABS: ABG HCO3 42.4 mmol/L (22-26)
[2019-01-26 06:35] LABS: ABG ALLEN TEST POS
[2019-01-26 06:38] LABS: PLATELET MORPHOLOGY COMMENT NORMAL (NORMAL)
[2019-01-26 06:39] LABS: ANISOCYTOSIS 1+; HYPOCHROMASIA 2+
[2019-01-26] MEDS: LOVENOX INJ 30 MG SYR SC SCH (10:08)
[2019-01-26] MEDS: ZAROXOYLN PO SCH (10:09)
[2019-01-26] MEDS: ASPIRIN EC 81 MG PO SCH (10:10)
[2019-01-26] MEDS: ALDACTONE TAB 25 MG PO SCH (10:11)
[2019-01-26] MEDS: PriLOSEC PO SCH (10:11)
[2019-01-26] MEDS: KEPPRA TAB 500 MG PO SCH ×2 (10:11→21:02)
[2019-01-26] MEDS: SNACK - Diabetic Appropriate PO SCH (20:00)
[2019-01-26] MEDS: LIPITOR TAB 40 MG PO SCH (21:03)
[2019-01-26] MEDS: NS 1000 ML 1,000 ML IV SCH (21:03)
[2019-01-27] MEDS: XOPENEX 1.25 MG/3 ML NEBULE NEB SCH ×6 (00:35→17:03)
[2019-01-27 05:38] LABS: ABG BASE EXCESS 19.4 mmol/L (-2.0-2.0)
[2019-01-27 05:39] LABS: ABG HCO3 46.2 mmol/L (22-26)
[2019-01-27 05:40] LABS: ABG ALLEN TEST POS
[2019-01-27 05:40] LABS: BASOPHILS # (AUTO) 0.1 X10^3/uL (0.0-0.1); BASOPHILS % (AUTO) 0.9 % (0.2-1.0); EOSINOPHILS % (AUTO) 0.8 % (0.9-2.9); HEMATOCRIT 30.7 % (36.0-47.0); HEMOGLOBIN 9.5 g/dL (12.0-16.0); LYMPHOCYTES # (AUTO) 0.7 X10^3/uL (1.3-2.9); LYMPHOCYTES % (AUTO) 11.5 % (21.0-51.0); MEAN CORPUSCULAR HEMOGLOBIN 21.9 pg (27.0-34.0); MEAN CORPUSCULAR VOLUME 70.7 fL (80.0-100.0); MEAN PLATELET VOLUME 8.8 fL (7.4-11.0); MONOCYTES # (AUTO) 0.8 x10^3/uL (0.3-0.8); MONOCYTES % (AUTO) 12.8 % (0.0-13.0); NEUTROPHILS # (AUTO) 4.4 x10^3/uL (2.2-4.8); PLATELET COUNT 193 X10^3/uL (150.0-450.0); RED BLOOD COUNT 4.35 X10^6/uL (3.5-5.4); RED CELL DISTRIBUTION WIDTH 22.5 % (11.6-16.5)
[2019-01-27] MEDS: LASIX IVP SCH (05:58)
[2019-01-27] MEDS: NEURONTIN CAP 100 MG PO SCH ×3 (05:58→21:12)
[2019-01-27 05:59] LABS: ALBUMIN 3.1 g/dL (3.4-5.0); CALCIUM 9.1 mg/dL (8.5-10.1); CARBON DIOXIDE 38.1 mmol/L (21-32); COR CA(FOR HYPOALB) 9.8 mg/dL (8.5-10.1); CREATININE 2.17 mg/dL (0.55-1.02); TOTAL PROTEIN 7.1 g/dL (6.4-8.2)
--- NOTE | 2019-01-27 06:12 | RAD ---
HISTORY: Follow-up respiratory failure Study: Chest AP portable Comparison: 01/24/2019 Findings: The heart remains enlarged. No congestive heart failure is noted. No acute alveolar infiltrates or pleural effusions are identified. The bony thorax is unremarkable. IMPRESSION: Continued marked cardiomegaly without congestive heart failure Reported By:
[2019-01-27 06:13] LABS: ANISOCYTOSIS 2+; HYPOCHROMASIA 2+; MICROCYTOSIS SLIGHT; PLATELET MORPHOLOGY COMMENT NORMAL (NORMAL)
[2019-01-27] MEDS: ASPIRIN EC 81 MG PO SCH (08:22)
[2019-01-27] MEDS: COLACE CAP 100 MG PO SCH ×2 (08:22→21:11)
[2019-01-27] MEDS: ALDACTONE TAB 25 MG PO SCH (08:22)
[2019-01-27] MEDS: LOVENOX INJ 30 MG SYR SC SCH (08:23)
[2019-01-27] MEDS: MILK OF MAGNESIA PO SCH ×2 (08:23→21:12)
[2019-01-27] MEDS: KEPPRA TAB 500 MG PO SCH ×2 (08:23→21:13)
[2019-01-27] MEDS: ZAROXOYLN PO SCH (08:24)
[2019-01-27] MEDS: PriLOSEC PO SCH (08:24)
[2019-01-27] MEDS: NS 1000 ML 1,000 ML IV SCH (14:46)
[2019-01-27] MEDS: HumuLIN R SUBCUT PRN ×3 (16:00→21:16)
[2019-01-27] MEDS: SNACK - Diabetic Appropriate PO SCH (20:00)
[2019-01-27] MEDS: LIPITOR TAB 40 MG PO SCH (21:12)
[2019-01-28] MEDS: XOPENEX 1.25 MG/3 ML NEBULE NEB SCH ×2 (00:30→05:50)
[2019-01-28 05:18] LABS: BASOPHILS # (AUTO) 0.1 X10^3/uL (0.0-0.1); EOSINOPHILS # (AUTO) 0.2 x10^3/uL (0.0-0.2); EOSINOPHILS % (AUTO) 3.3 % (0.9-2.9); HEMATOCRIT 28.1 % (36.0-47.0); HEMOGLOBIN 8.6 g/dL (12.0-16.0); LYMPHOCYTES % (AUTO) 16.1 % (21.0-51.0); MEAN CORPUSCULAR HEMOGLOBIN 21.9 pg (27.0-34.0); MEAN CORPUSCULAR HGB CONC 30.7 g/dL (33.0-35.0); MEAN CORPUSCULAR VOLUME 71.2 fL (80.0-100.0); MONOCYTES # (AUTO) 0.9 x10^3/uL (0.3-0.8); MONOCYTES % (AUTO) 14.6 % (0.0-13.0); PLATELET COUNT 170 X10^3/uL (150.0-450.0); RED BLOOD COUNT 3.95 X10^6/uL (3.5-5.4); RED CELL DISTRIBUTION WIDTH 22.2 % (11.6-16.5); WHITE BLOOD COUNT 6.1 X10^3/uL (3.6-10.0)
[2019-01-28 05:30] LABS: ALBUMIN 2.8 g/dL (3.4-5.0); CALCIUM 8.6 mg/dL (8.5-10.1); CARBON DIOXIDE 38.5 mmol/L (21-32); COR CA(FOR HYPOALB) 9.6 mg/dL (8.5-10.1); CREATININE 2.04 mg/dL (0.55-1.02); TOTAL PROTEIN 6.7 g/dL (6.4-8.2)
[2019-01-28 05:52] LABS: BAND NEUTROPHILS % 4 % (0-10); PLATELET MORPHOLOGY COMMENT NORMAL (NORMAL)
[2019-01-28 05:53] LABS: ANISOCYTOSIS 2+; HYPOCHROMASIA 2+; TARGET CELLS PRESENT
[2019-01-28] MEDS: NEURONTIN CAP 100 MG PO SCH (06:30)
[2019-01-28] MEDS: HumuLIN R SUBCUT PRN (06:32)
[2019-01-28] MEDS: PriLOSEC PO SCH (08:20)
[2019-01-28] MEDS: ZAROXOYLN PO SCH (08:20)
[2019-01-28] MEDS: COLACE CAP 100 MG PO SCH (08:20)
[2019-01-28] MEDS: ASPIRIN EC 81 MG PO SCH (08:20)
[2019-01-28] MEDS: MILK OF MAGNESIA PO SCH (08:21)
[2019-01-28] MEDS: ALDACTONE TAB 25 MG PO SCH (08:21)
[2019-01-28] MEDS: LOVENOX INJ 30 MG SYR SC SCH (08:21)
[2019-01-28] MEDS: KEPPRA TAB 500 MG PO SCH (08:21)
[2019-01-28] MEDS ORDERED: LASIX IVP ONE ×2 (08:42→08:49)
[2019-01-28 09:12] VITALS: BP 151/65
== END 2019-01-28 10:00 | DRG 292 ==
LOC: MED/SURG 16:48 → ICU 21:10
PROVIDERS: ADMIT Internal Medicine; ATTEND Internal Medicine
DX: R41.82 Altered mental status, unspecified; E11.65 Type 2 diabetes mellitus with hyperglycemia; N18.9 Chronic kidney disease, unspecified; J44.9 Chronic obstructive pulmonary disease, unspecified; E11.22 Type 2 diabetes mellitus with diabetic chronic kidney disease; I50.9 Heart failure, unspecified; R60.0 Localized edema; R06.03 Acute respiratory distress; N17.8 Other acute kidney failure; I69.920 Aphasia following unspecified cerebrovascular disease; I25.10 Atherosclerotic heart disease of native coronary artery without angina pectoris
CPT/HCPCS: 36415; 36600; 71010; 71045; 80053; 81001; 82550; 82553; 82803; 84484; 85025; 93005; 94640; 94660; 94760; 97110; 97162; 97165; 97530; A4618; A7030; J1650; J1815; J1940; J7030